=== PATIENT | female | born 1970 | race Caucasian/White ===

== ENCOUNTER 2017-03-03 13:57 | Emergency (ER) | payer OTHER ==
[~2017-03-03] VITALS: Ht 157.5 cm; Wt 82.0 kg
[~2017-03-03 13:57] MED LIST: FAMO40TA38
[2017-03-03 14:00] VITALS: Ht 157.5 cm; Wt 82.0 kg
[2017-03-03] MEDS ORDERED: SOD CHLORIDE 0.9% 1,000 ML IV STA (14:49)
--- NOTE | 2017-03-03 15:29 | RADRPT ---
PROCEDURE: Chest Radiograph. CLINICAL INDICATION: Syncope TECHNIQUE: Single frontal chest radiograph. COMPARISON: None available FINDINGS: The cardiomediastinal silhouette is within normal limits. No infiltrate or effusion is seen. Th e bones are intact. IMPRESSION: 1. Unremarkable chest radiograph. RPTAT: KK .Erich Noe MD, MD Date Time Electronically viewed and signed by .Erich Noe MD, on 03/03/2017 15:29 .B/
[2017-03-03 15:38] LABS: ADD SCAN DIFF NO
[2017-03-03 15:42] LABS: BASOPHILS % 0.2 % (0.0-2.0); EOSINOPHILS # 0.1 10^3/ul (0.0-0.5); EOSINOPHILS % 1.2 % (0.0-7.0); HEMATOCRIT 46.3 % (37.0-47.0); HEMOGLOBIN 15.3 g/dl (12.0-16.0); LYMPHOCYTES # 1.4 10^3/ul (0.8-2.9); LYMPHOCYTES % 33.5 % (15.0-51.0); MEAN CORPUSCULAR HEMOGLOBIN 29.8 pg (29.0-33.0); MEAN CORPUSCULAR VOLUME 90.1 fl (82.0-101.0); MEAN PLATELET VOLUME 10.7 fl (7.4-10.4); MONOCYTE # 0.5 10^3/ul (0.3-0.9); MONOCYTES % 13.1 % (0.0-11.0); NEUTROPHIL # 2.1 10^3/ul (1.6-7.5); NEUTROPHILS % 51.8 % (39.0-77.0); PLATELET COUNT 274 10^3/UL (140-415); RED BLOOD COUNT 5.14 10^6/ul (4.20-5.40); RED CELL DISTRIBUTION WIDTH 13.2 % (11.5-14.5); WHITE BLOOD COUNT 4.1 10^3/ul (4.8-10.8)
--- NOTE | 2017-03-03 15:52 | ERA ---
ER Documentation Chief Complaint Date/Time DATE: 03/03/17 TIME: 15:49 Chief Complaint abd pain with vomiting/diarrhea x 4 days , syncopal episode yesterday HPI 47-year-old female, [place]-speaking and an educational interpreter was used. The patient presents with multiple complaints and multiple different systems. She describes approximately 4 days of nausea vomiting and diarrhea. The vomiting is nonbloody nonbilious and the diarrhea is loose. He has mild cramping abdominal discomfort that is 2 out of 10. She also notes a mild headache that is dull, gradual onset and frontal. She notes paresthesias to the entire body but mostly to the left side of her body. Additionally she describes approximately 2-3 episodes of syncope versus near syncope. She states that when she was standing up she felt lightheaded and may have passed out today. However 2 days ago she was sitting on the couch and thinks that she slumped over. This was witnessed by her daughter without seizure activity and no postictal state. She denied any prodrome of chest pain or shortness of breath. No lumbar back pain or neck pain. ROS All systems reviewed and are negative except as per history of present illness. Medications Home Meds Active Scripts Ondansetron (Ondansetron Odt) 4 Mg Tab.rapdis, 4 MG PO Q6H Y for NAUSEA AND/OR VOMITING, #30 TAB Prov:COOKIE LAWSON MD 03/03/17 Discontinued Reported Medications Famotidine* (Pepcid*) 40 Mg Tablet 12/26/10 Allergies Allergies: Coded Allergies: No Known Drug Allergies (Verified Allergy, Mild, 03/03/17) PMhx/Soc History of Surgery: Yes (GALLSTONE,) Anesthesia Reaction: No Hx Neurological Disorder: No Hx Respiratory Disorders: No Hx Cardiac Disorders: No Hx Psychiatric Problems: No Hx Miscellaneous Medical Probl: No Hx Alcohol Use: No Hx Substance Use: No Hx Tobacco Use: No Smoking Status: Never smoker FmHx Family History: No coronary disease, No diabetes Physical Exam Vitals Vital Signs Date Time Temp Pulse Resp B/P Pulse Ox O2 Delivery O2 Flow Rate FiO2 03/03/17 16:00 98.0 78 18 115/76 100 Room Air 03/03/17 14:00 98.2 96 18 128/89 99 Physical Exam General: Well developed, well nourished, no acute distress Head: Normocephalic, atraumatic. Eyes: Pupils equally reactive, EOM intact ENT: Moist mucous membranes Neck: Supple, no lymphadenopathy Respiratory: Lungs clear bilaterally, no distress Cardiovascular: RRR, no murmurs, rubs, or gallops Abdominal: Soft, non-tender, non-distended, no peritoneal signs : Deferred MSK: No edema, no unilateral swelling, 5/5 strength Neurologic: Alert and oriented, moving all extremities, normal speech, no focal weakness, no cerebellar signs, steady gait Skin: No rash Psych: Normal mood Result Diagram: 03/03/17 1500 03/03/17 1500 Results 24 hrs Laboratory Tests Test 03/03/17 15:00 03/03/17 15:16 White Blood Count 4.110^3/ul Red Blood Count 5.1410^6/ul Hemoglobin 15.3g/dl Hematocrit 46.3% Mean Corpuscular Volume 90.1fl Mean Corpuscular Hemoglobin 29.8pg Mean Corpuscular Hemoglobin Concent 33.0g/dl Red Cell Distribution Width 13.2% Platelet Count 85641^3/UL Mean Platelet Volume 10.7fl Neutrophils % 51.8% Lymphocytes % 33.5% Monocytes % 13.1% Eosinophils % 1.2% Basophils % 0.2% Nucleated Red Blood Cells % 0.0/100WBC Neutrophils # 2.110^3/ul Lymphocytes # 1.410^3/ul Monocytes # 0.510^3/ul Eosinophils # 0.110^3/ul Basophils # 0.010^3/ul Nucleated Red Blood Cells # 0.010^3/ul Prothrombin Time 12.9Sec Prothrombin Time Ratio 1.0 INR International Normalized Ratio 0.97 Activated Partial Thromboplast Time 26.1Sec Sodium Level 139mmol/L Potassium Level 3.4mmol/L Chloride Level 102mmol/L Carbon Dioxide Level 24mmol/L Anion Gap 16 Blood Urea Nitrogen 18mg/dl Creatinine 0.68mg/dl Glucose Level 105mg/dl Calcium Level 9.9mg/dl Troponin I < 0.012ng/ml Bedside Glucose 108mg/dL Current Medications Medications (Trade) Dose Ordered Sig/Abner Route PRN Reason Start Time Stop Time Status Last Admin Dose Admin Sodium Chloride (NS) 1,000 ml @ 1,000 mls/hr Q1H STAT IV 03/03/17 14:49 03/03/17 15:48 DC 03/03/17 15:32 Procedures/MDM EKG, MONITORS, & DIAGNOSTIC IMAGING: EKG: I reviewed and interpreted a 12-lead EKG. Rhythm: Normal sinus rhythm Ectopy: None Intervals: No abnormalities ST segments: No elevations or depressions T waves: No contiguous inversions Chest x-ray: I reviewed and interpreted a 1 view of the chest Mediastinum: No enlargement Cardiac silhouette: No cardiomegaly Airspace: Clear lung perez bilaterally without evidence of pneumothorax Bones: No evidence of fracture CT brain: IMPRESSION: 1. Normal noncontrast CT scan of the brain. 2. If there is clinical concern regarding a posterior fossa lesion, correlation with MRI of the brain is advised. RPTAT: QQ LAB INTERPRETATION: No significant leukocytosis, negative troponin MEDICAL DECISION MAKING: The patient presents the emergency room with nausea vomiting and diarrhea for 4 days. Over this timeframe the patient also has a multitude of other complaints including paresthesias, generalized malaise, headache and 2-3 episodes of syncope versus near syncope. Today she clearly describes a near syncopal episode upon standing. I believe this is most consistent with likely vasovagal versus orthostatic syncope. She does not have any prodrome of chest pain or shortness of breath and is not exhibiting any exertional symptoms or exertional syncope. She has a mild headache but has no warning signs or physical exam findings that would be concerning for subarachnoid hemorrhage. The patient's headache is unlikely related to serious etiology. The patient does not exhibit any clinical signs or symptoms, and has no risk factors to suggest headache etiology such as subarachnoid hemorrhage, acute vertebral or carotid dissection , intracranial mass, epidural, subdural hematoma, dural venous sinus thrombosis , giant cell arteritis, or pseudotumor cerebri. I do not believe the patient is having serious etiology to her episodes of syncope versus near syncope. This is unlikely given to be secondary to cardiac arrhythmia, no evidence of dissection or pulmonary embolism. Again, likely secondary to mild dehydration in the setting of acute diarrheal illness given temporal relation. The patient will benefit from fluid hydration, laboratory testing, CT imaging of the brain. I discussed inpatient versus outpatient management and if her laboratory testing and diagnostic imaging is unrevealing, outpatient management may be appropriate. ER COURSE: The patient continues to be well-appearing and symptoms are improving. She is ambulatory. Again, very low clinical concern for cardiac process or stroke. The patient's syncopal episode seemed to be more consistent with dehydration and orthostasis. The patient's orthostasis has clinically improved as the patient is amatory without difficulty. Outpatient management appropriate. If syncope occurs again the patient should return to the emergency room. I kept the patient and/or family informed of laboratory and diagnostic imaging results throughout the emergency room course. DISPOSITION PLAN: We discussed follow up with the patient's primary care doctor within 24 to 48 hours as needed. We also discussed return to the emergency room for worsening symptoms or worsening condition. Outpatient referral: [None required] Discharge Medications: Zofran Departure Diagnosis: Primary Impression: Nausea vomiting and diarrhea Additional Impressions: Near syncope Mild dehydration Condition: Stable COOKIE LAWSON MD Mar 03, 2017 15:52
--- NOTE | 2017-03-03 15:54 | RADRPT ---
PROCEDURE: CT Brain without contrast. CLINICAL INDICATION: Syncope. TECHNIQUE: A CT of the brain without contrast was performed utilizing axial sections from the skul l base through the vertex. The patient was scanned without intravenous contrast enhancement. Sagitta l and coronal reformatted images were obtained using the data from the axial images. Total exam DLP is 630.20 mGy-cm. CTDIvol is 45.01 mGy. One or more of the following dose reduction techniques we re used: Automated exposure control, adjustment of the mA and/or kV according to patient size, use o f iterative reconstruction technique. COMPARISON: None available FINDINGS: There is normal evans-white matter differentiation. The ventricles and cisterns are normal. There is no intracranial hemorrhage or space-occupying lesion. There is no skull fracture or lytic lesion. IMPRESSION: 1. Normal noncontrast CT scan of the brain. 2. If there is clinical concern regarding a posterior fossa lesion, correlation with MRI of the bra in is advised. RPTAT: QQ .Chapito Baron MD, MD Date Time Electronically viewed and signed by .Chapito Baron MD, on 03/03/2017 15:54 .R/
[2017-03-03 15:59] LABS: INR 0.97; PARTIAL THROMBOPLASTIN TIME 26.1 Sec (25.0-35.0); PROTIME 12.9 Sec (12.2-14.2)
[2017-03-03 16:00] LABS: ANION GAP 16 (8-16); BLOOD UREA NITROGEN 18 mg/dl (7-20); CALCIUM 9.9 mg/dl (8.4-10.2); CARBON DIOXIDE 24 mmol/L (21-31); CHLORIDE 102 mmol/L (97-110); CREATININE 0.68 mg/dl (0.44-1.00); GLUCOSE 105 mg/dl (70-220); POTASSIUM 3.4 mmol/L (3.5-5.1); SODIUM 139 mmol/L (135-144)
[2017-03-03 16:14] LABS: TROPONIN-I < 0.012 ng/ml (0.00-0.12)
[2017-03-03] MEDS ORDERED: ONDA4TAB14 PO (17:02)
[2017-03-03 17:29] VITALS: BP 122/70; PULSE 74; RESP 20; TEMP 98.2
== END 2017-03-03 17:31 | disposition home or self-care (01) ==
LOC: E/R 13:57
DX: R11.2 Nausea with vomiting, unspecified (principal); R19.7 Diarrhea, unspecified; R55 Syncope and collapse; E86.0 Dehydration
CPT/HCPCS: 36415; 70450; 71010; 80048; 82962; 84484; 85025; 85610; 85730; 93005; J7030; Z7502

== ENCOUNTER 2017-03-08 11:59 | Emergency (ER) | payer OTHER ==
[~2017-03-08] VITALS: Wt 86.5 kg
[~2017-03-08 11:59] MED LIST changes: -FAMO40TA38; +ONDA4TAB14 PO
[2017-03-08] MEDS ORDERED: KETOROLAC 30 MG INJ IV STA (12:50)
[2017-03-08] MEDS ORDERED: SOD CHLORIDE 0.9% 1,000 ML IV STA (12:50)
[2017-03-08] MEDS ORDERED: ONDANSETRON 4 MG INJ IV STA (12:50)
[2017-03-08] MEDS ORDERED: KETOROLAC 60 MG INJ IM STA (12:54)
[2017-03-08] MEDS ORDERED: ONDANSETRON (ODT) 4 MG TAB ODT STA (12:54)
[2017-03-08] MEDS ORDERED: HYDROCODONE/APAP (5/325) TAB PO ONE (13:00)
[2017-03-08 13:23] LABS: URINE BLOOD (Dip) POC Trace-lysed (NEGATIVE)
[2017-03-08] MEDS ORDERED: FIORICET PO (13:27)
[2017-03-08] MEDS ORDERED: CEPHALEXIN 500 MG CAP PO ONE (13:30)
[2017-03-08] MEDS ORDERED: CEPH-443 PO (13:32)
--- NOTE | 2017-03-08 13:40 | ERD ---
ER Documentation Chief Complaint Date/Time DATE: 03/08/17 TIME: 13:38 Chief Complaint INTERMITTENT HEADACHE X1 WEEK HPI This 47-year-old female presents for a bitemporal headache over the last few days. History is significant for being seen here earlier this week for vomiting diarrhea. Vomiting diarrhea has resolved. She had a normal CT brain on her previous visit. She denies any current fevers, bowel pain. She some slight dizziness but no visual changes, vomiting, deficits, bowel or bladder incontinence. ROS All systems reviewed and are negative except as per history of present illness. Medications Home Meds Active Scripts Cephalexin* (Keflex*) 500 Mg Capsule, 500 MG PO QID for 5 Days, CAP Prov:CANDELARIO AGUERO MD 03/08/17 Acetamin/Butalbital/Caffeine* (Fioricet*) [id number] Tab, 1 TAB PO Q6H Y for PAIN, #15 TAB Prov:CANDELARIO AGUERO MD 03/08/17 Ondansetron (Ondansetron Odt) 4 Mg Tab.rapdis, 4 MG PO Q6H Y for NAUSEA AND/OR VOMITING, #30 TAB Prov:COOKIE LAWSON MD 03/03/17 Discontinued Reported Medications Famotidine* (Pepcid*) 40 Mg Tablet 12/26/10 Allergies Allergies: Coded Allergies: No Known Drug Allergies (Verified Allergy, Mild, 03/03/17) PMhx/Soc History of Surgery: Yes (GALLSTONE,) Anesthesia Reaction: No Hx Neurological Disorder: No Hx Respiratory Disorders: No Hx Cardiac Disorders: No Hx Psychiatric Problems: No Hx Miscellaneous Medical Probl: No Hx Alcohol Use: No Hx Substance Use: No Hx Tobacco Use: No Smoking Status: Never smoker Physical Exam Vitals Vital Signs Date Time Temp Pulse Resp B/P Pulse Ox O2 Delivery O2 Flow Rate FiO2 03/08/17 12:06 98.6 70 20 135/84 99 Physical Exam Const: [] Alert, [id number], morbidly obese. Head: Atraumatic Eyes: Normal Conjunctiva. Eyes are PERRL and extraocular movements intact. ENT: Normal External Ears, Nose and Mouth. Neck: Full range of motion..~ No meningismus. Resp: Clear to auscultation bilaterally Cardio: Regular rate and rhythm, no murmurs Abd: Soft, non tender, non distended. Normal bowel sounds Skin: No petechiae or rashes Back: No midline or flank tenderness Ext: No cyanosis, or edema Neur: Awake and alert. Normal gait. No appreciable focal neurologic deficits. Cranial nerves II to progress intact. Psych: Normal Mood and Affect Results 24 hrs Laboratory Tests Test 03/08/17 13:28 Bedside Urine pH (LAB) 7.0 Bedside Urine Protein (LAB) Trace Bedside Urine Glucose (UA) Negative Bedside Urine Ketones (LAB) Negative Bedside Urine Blood Trace-lysed Bedside Urine Nitrite (LAB) Positive Bedside Urine Leukocyte Esterase (L 1+ Current Medications Medications (Trade) Dose Ordered Sig/Abner Route PRN Reason Start Time Stop Time Status Last Admin Dose Admin Sodium Chloride (NS) 1,000 ml @ 1,000 mls/hr Q1H STAT IV 03/08/17 12:50 03/08/17 12:54 DC Ondansetron HCl (Zofran Inj) 4 mg ONCE STAT IV 03/08/17 12:50 03/08/17 12:54 DC Ketorolac Tromethamine (Toradol) 30 mg ONCE STAT IV 03/08/17 12:50 03/08/17 12:54 DC Acetaminophen/ Hydrocodone Bitart ([place] (5/325)) 1 tab ONCE ONCE PO 03/08/17 13:00 03/08/17 13:01 DC 03/08/17 13:16 Ketorolac Tromethamine (Toradol) 60 mg ONCE STAT IM 03/08/17 12:54 03/08/17 12:55 DC 03/08/17 13:16 Ondansetron HCl (Zofran Odt) 8 mg ONCE STAT ODT 03/08/17 12:54 03/08/17 12:56 DC 03/08/17 13:17 Cephalexin (Keflex) 500 mg ONCE ONCE PO 03/08/17 13:30 03/08/17 13:33 DC Procedures/MDM Patient presents with signs symptoms are likely tension headache. Urine shows positive nitrites and leukocytes patient was given Keflex 500 mg by mouth, and [place] 5 mg and mouth and Toradol 60 mg IM. Patient has signs is UTI but patient didn't tension headache may be constitutional symptoms due to what appear to be resolving gastrointestinal virus. Signs and symptoms do not suggest meningitis, neurologic deficit, acute abdomen, sepsis or additional cause of present complaints. She'll be treated with a short course of Fioricet and Keflex at home and primary care follow-up. Departure Diagnosis: Primary Impression: UTI (urinary tract infection) Urinary tract infection type: acute cystitis Hematuria presence: without hematuria Qualified Code: N30.00 - Acute cystitis without hematuria Additional Impression: Headache Headache type: unspecified Headache chronicity pattern: unspecified pattern Intractability: not intractable Qualified Code: R51 - Nonintractable headache, unspecified chronicity pattern, unspecified headache type Condition: Stable Patient Instructions: Understanding Urinary Tract Infections (UTIs), Tension Headaches, Headache, Unspecified Additional Instructions: TIENE INFECCION EN ORINA Y VAMOS A TRATAR. Cheque otro vez con huiazr doctor primario en el proximo blair or regresa para mas o nueva simptomas. PURVI MUCH AGUA EN CASA. CANDELARIO AGUERO MD Mar 08, 2017 13:40
== END 2017-03-08 13:59 | disposition home or self-care (01) ==
LOC: FTE 11:59
DX: N30.00 Acute cystitis without hematuria (principal); R11.10 Vomiting, unspecified
CPT/HCPCS: 81003; 96372; J1885; Z7502; Z7610; J7030

== ENCOUNTER 2017-06-18 13:20 | Emergency (ER) | payer OTHER ==
[~2017-06-18] VITALS: Wt 90.9 kg
[~2017-06-18 13:20] MED LIST changes: +CEPH-443 PO; +FIORICET PO
[2017-06-18] MEDS ORDERED: SOD CHLORIDE 0.9% 1,000 ML IV STA (18:06)
[2017-06-18] MEDS ORDERED: ONDANSETRON 4 MG INJ IV STA (18:06)
[2017-06-18] MEDS ORDERED: morphine 4 MG/ML VIAL IV STA (18:29)
[2017-06-18 18:54] LABS: ADD UMIC NO; UR ASCORBIC ACID NEGATIVE (NEGATIVE); UR BILIRUBIN (Dip) NEGATIVE (NEGATIVE); UR BLOOD (Dip) NEGATIVE (NEGATIVE); UR CLARITY CLEAR (CLEAR); UR COLOR YELLOW (YELLOW); UR GLUCOSE (Dip) 1+ mg/dL (NEGATIVE); UR KETONES (Dip) NEGATIVE (NEGATIVE); UR LEUKOCYTE ESTERASE (Dip) NEGATIVE Leu/ul (NEGATIVE); UR NITRITE (Dip) NEGATIVE (NEGATIVE); UR SPECIFIC GRAVITY (Dip) 1.024 (1.003-1.030); UR TOTAL PROTEIN (Dip) NEGATIVE (NEGATIVE); UR UROBILINOGEN (Dip) NEGATIVE (NEGATIVE)
[2017-06-18 18:55] LABS: BASOPHILS % 0.5 % (0.0-2.0); EOSINOPHILS # 0.2 10^3/ul (0.0-0.5); EOSINOPHILS % 2.5 % (0.0-7.0); HEMATOCRIT 38.1 % (37.0-47.0); HEMOGLOBIN 12.9 g/dl (12.0-16.0); LYMPHOCYTES # 2.7 10^3/ul (0.8-2.9); MEAN CORPUSCULAR HEMOGLOBIN 31.3 pg (29.0-33.0); MEAN CORPUSCULAR HGB CONC 33.9 g/dl (32.0-37.0); MEAN CORPUSCULAR VOLUME 92.5 fl (82.0-101.0); MONOCYTE # 0.7 10^3/ul (0.3-0.9); MONOCYTES % 8.4 % (0.0-11.0); NEUTROPHIL # 4.3 10^3/ul (1.6-7.5); NEUTROPHILS % 54.1 % (39.0-77.0); PLATELET COUNT 257 10^3/UL (140-415); RED BLOOD COUNT 4.12 10^6/ul (4.20-5.40); RED CELL DISTRIBUTION WIDTH 13.1 % (11.5-14.5); WHITE BLOOD COUNT 7.9 10^3/ul (4.8-10.8)
[2017-06-18 19:19] LABS: ALBUMIN 4.1 g/dl (3.3-4.9); ALBUMIN/GLOBULIN RATIO 1.17; BILIRUBIN,INDIRECT 0.1 mg/dl (0-1.1); BILIRUBIN,TOTAL 0.1 mg/dl (0.2-1.3); CALCIUM 9.6 mg/dl (8.4-10.2); CREATININE 0.58 mg/dl (0.44-1.00); POTASSIUM 3.7 mmol/L (3.5-5.1); TOTAL PROTEIN 7.6 g/dl (6.1-8.1)
[2017-06-18] MEDS ORDERED: IOHEXOL 300MG/ML 150 ML BTL ONE (19:55)
[2017-06-18] MEDS ORDERED: SOD CHLORIDE 0.9% 100 ML ONE (19:55)
--- NOTE | 2017-06-18 20:32 | RADRPT ---
PROCEDURE: CT Abdomen and Pelvis with contrast. CLINICAL INDICATION: Abdominal pain TECHNIQUE: CT of the abdomen and pelvis was performed on a multi-detector scanner following the un complicated IV administration of 90 cc of Omnipaque 300. Coronal and sagittal images were reformatt ed from the axial data set. One or more of the following dose reduction techniques were used: autom ated exposure control, adjustment of the mA and/or kV according to patient size, use of iterative re construction technique. CTDI = 22.04 mGy. DLP = 1183.13 mGy-cm. COMPARISON: None. FINDINGS: The lung bases are clear. The heart size is normal, without pericardial effusion. Severe hepatic s teatosis is noted, without evidence of focal mass. Gallbladder is surgically absent. Biliary tree, p ancreas, spleen, adrenal glands and kidneys are unremarkable. No urolithiasis or obstructive uropath y is identified. The stomach is grossly unremarkable. There is no abdominal aortic aneurysm or dissection. There is no retroperitoneal lymphadenopathy. The virgen hepatis region is clear. No bowel obstruction, free intraperitoneal air or abscess is identified. There is no diverticulosis, diverticulitis or colitis. The appendix is well visualized and normal. Urinary bladder, uterus and right adnexa are grossly unremarkable. Left ovary demonstrates a 3 cm cyst. No solid pelvic mass, fr ee fluid or lymphadenopathy is identified. The surrounding osseous structures are unremarkable. No osteolytic or osteoblastic lesion is detect ed. IMPRESSION: 1. There is severe hepatic steatosis. 2. Left ovary demonstrates a 3 cm cyst. 3. No solid mass, lymphadenopathy, or acute inflammatory process is identified. RPTAT: HDWR .Jhony Rueda MD, MD Date Time Electronically viewed and signed by .Jhony Rueda MD, MD on 06/18/2017 20:32 .R/
[2017-06-18] MEDS ORDERED: FAMOTIDINE 20 MG INJ IV ONE (21:00)
[2017-06-18] MEDS ORDERED: LIDOCAINE/MYLANTA 40 ML BTL PO ONE (21:00)
[2017-06-18] MEDS ORDERED: RANI150T9 PO (21:58)
[2017-06-18 22:20] VITALS: BP 123/69; PULSE 62; RESP 17; TEMP 97.9
--- NOTE | 2017-06-18 23:27 | ERD ---
ER Documentation Chief Complaint Date/Time DATE: 06/18/17 TIME: 23:23 Chief Complaint abd pain w nausea HPI 39-year-old female patient with a past medical history of status post cholecystectomy presents to the ED complaining of epigastric pain that she describes as pressure-like since 3 days ago. Patient reports that she is nauseous but denies any vomiting or diarrhea. Reports that her pain is worse with food. She had a near syncopal episode 3 days ago. Denies any post-ictal symptoms or seizures. Denies any neck stiffness, headache, chest pain, shortness of breath, diarrhea, constipation, dysuria, urgency, frequency, flank pain. ROS All systems reviewed and are negative except as per history of present illness. Medications Home Meds Active Scripts Ranitidine Hcl* (Zantac*) 150 Mg Tablet, 150 MG PO BID Y for EPIGASTRIC PAIN, # 30 TAB Prov:MARYANN HOLLINS PA-C 06/18/17 Cephalexin* (Keflex*) 500 Mg Capsule, 500 MG PO QID for 5 Days, CAP Prov:CANDELARIO NICOLE MD 03/08/17 Acetamin/Butalbital/Caffeine* (Fioricet*) [id number] Tab, 1 TAB PO Q6H Y for PAIN, #15 TAB Prov:CANDELARIO NICOLE MD 03/08/17 Ondansetron (Ondansetron Odt) 4 Mg Tab.rapdis, 4 MG PO Q6H Y for NAUSEA AND/OR VOMITING, #30 TAB Prov:COOKIE LAWSON MD 03/03/17 Allergies Allergies: Coded Allergies: No Known Drug Allergies (Verified Allergy, Mild, 03/03/17) PMhx/Soc History of Surgery: Yes (GALLSTONE,) Anesthesia Reaction: No Hx Neurological Disorder: No Hx Respiratory Disorders: No Hx Cardiac Disorders: No Hx Psychiatric Problems: No Hx Miscellaneous Medical Probl: No Hx Alcohol Use: No Hx Substance Use: No Hx Tobacco Use: No Smoking Status: Never smoker Physical Exam Vitals Vital Signs Date Time Temp Pulse Resp B/P Pulse Ox O2 Delivery O2 Flow Rate FiO2 06/18/17 22:20 97.9 62 17 123/69 98 Room Air 06/18/17 19:08 146/65 06/18/17 19:07 135/64 06/18/17 13:28 97.9 74 20 123/67 99 Physical Exam Const: [id number], well-nourished. In no acute distress. Head: Atraumatic, normocephalic Eyes: Normal Conjunctiva without injection. No purulent discharge. ENT: Normal external ear, nose. Moist oropharynx without tonsillar exudates. Non -erythematous pharynx. Uvula midline. No drooling. No trismus. Neck: No cervical midline tenderness. Full range of motion. No meningismus. No cervical lymphadenopathy. No JVD. Resp: Clear to auscultation bilaterally. No wheezing, rhonchi, rales, or crackles. No accessory muscle use. No retractions. Cardio: Regular rate and rhythm. No murmurs, rubs or gallops. Abd: Soft, epigastric tenderness, non distended. Normal bowel sounds. No palpable masses. No rebound tenderness. No guarding. Negative McBurney's point. Negative psoas sign. Negative obturator sign. : See exam in MDM. Skin: No petechiae or rashes Back: No midline tenderness. No CVA tenderness. Ext: No cyanosis, or edema. Neur: Awake and alert. Normal gait. Normal coordination. Psych: Normal Mood and Affect Results 24 hrs Laboratory Tests Test 06/18/17 18:25 06/18/17 18:32 Urine Color YELLOW Urine Clarity CLEAR Urine pH 5.0 Urine Specific [place] 1.024 Urine Ketones NEGATIVEmg/dL Urine Nitrite NEGATIVEmg/dL Urine Bilirubin NEGATIVEmg/dL Urine Urobilinogen NEGATIVEmg/dL Urine Leukocyte Esterase NEGATIVELeu/ul Urine Hemoglobin NEGATIVEmg/dL Urine Glucose 1+mg/dL Urine Total Protein NEGATIVEmg/dl White Blood Count 7.910^3/ul Red Blood Count 4.1210^6/ul Hemoglobin 12.9g/dl Hematocrit 38.1% Mean Corpuscular Volume 92.5fl Mean Corpuscular Hemoglobin 31.3pg Mean Corpuscular Hemoglobin Concent 33.9g/dl Red Cell Distribution Width 13.1% Platelet Count 05392^3/UL Mean Platelet Volume 11.0fl Neutrophils % 54.1% Lymphocytes % 34.0% Monocytes % 8.4% Eosinophils % 2.5% Basophils % 0.5% Nucleated Red Blood Cells % 0.0/100WBC Neutrophils # 4.310^3/ul Lymphocytes # 2.710^3/ul Monocytes # 0.710^3/ul Eosinophils # 0.210^3/ul Basophils # 0.010^3/ul Nucleated Red Blood Cells # 0.010^3/ul Sodium Level 138mmol/L Potassium Level 3.7mmol/L Chloride Level 106mmol/L Carbon Dioxide Level 24mmol/L Anion Gap 12 Blood Urea Nitrogen 14mg/dl Creatinine 0.58mg/dl Glucose Level 94mg/dl Calcium Level 9.6mg/dl Total Bilirubin 0.1mg/dl Direct Bilirubin 0.00mg/dl Indirect Bilirubin 0.1mg/dl Aspartate Amino Transf (AST/SGOT) 49IU/L Alanine Aminotransferase (ALT/SGPT) 44IU/L Alkaline Phosphatase 108IU/L Total Protein 7.6g/dl Albumin 4.1g/dl Globulin 3.50g/dl Albumin/Globulin Ratio 1.17 Lipase 127U/L Serum HCG, Qualitative NEGATIVE Current Medications Medications (Trade) Dose Ordered Sig/Abner Route PRN Reason Start Time Stop Time Status Last Admin Dose Admin Sodium Chloride (NS) 1,000 ml @ 1,000 mls/hr Q1H STAT IV 06/18/17 18:06 06/18/17 19:05 DC 06/18/17 18:22 Ondansetron HCl (Zofran Inj) 4 mg ONCE STAT IV 06/18/17 18:06 06/18/17 18:09 DC 06/18/17 18:22 Morphine Sulfate (morphine) 4 mg ONCE STAT IV 06/18/17 18:29 06/18/17 18:30 DC 06/18/17 19:00 IV Flush 10 ml 10 ml STK-MED ONCE .ROUTE 06/18/17 19:55 06/18/17 19:56 DC 06/18/17 20:15 Sodium Chloride (NS) 100 ml @ ud STK-MED ONCE .ROUTE 06/18/17 19:55 06/18/17 19:56 DC 06/18/17 20:16 Iohexol (Omnipaque 300mg/ ml) 150 ml STK-MED ONCE .ROUTE 06/18/17 19:55 06/18/17 19:56 DC 06/18/17 20:15 Miscellaneous Medication (Gi Cocktail (2)) 40 ml ONCE ONCE PO 06/18/17 21:00 06/18/17 21:01 DC 06/18/17 21:28 Famotidine (Pepcid Iv) 20 mg ONCE ONCE IV 06/18/17 21:00 06/18/17 21:01 DC 06/18/17 21:28 Procedures/MDM 47-year-old female patient with no significant past medical history resents to the ED complaining of abdominal pain with nausea that started 3 days ago. Patient is afebrile and nontoxic-appearing. Patient has normal vital signs. Patient was further worked up with CBC, CMP, lipase, UA, CT of the abdomen and pelvis without contrast. Patient's pain and symptoms have improved after treatment with 4 mg IV morphine, Zofran 4 mg IV, 1 L normal saline, GI cocktail , Famotidine 20 mg IV. CBC: No leukocytosis. No e/o of systemic infection. No e/o anemia. CMP: No e/o severe acidosis, alkalosis, renal failure, diabetic ketoacidosis, liver disease Lipase within normal limits. Urine: No leukocyte esterase, no nitrites, no hematuria. Urine : Negative Beta Hcg negative PROCEDURE: CT Abdomen and Pelvis with contrast. CLINICAL INDICATION: Abdominal pain TECHNIQUE: CT of the abdomen and pelvis was performed on a multi-detector scanner following the uncomplicated IV administration of 90 cc of Omnipaque 300. Coronal and sagittal images were reformatted from the axial data set. One or more of the following dose reduction techniques were used: automated exposure control, adjustment of the mA and/or kV according to patient size, use of iterative reconstruction technique. CTDI = 22.04 mGy. DLP = 1183.13 mGy-cm. COMPARISON: None. FINDINGS: The lung bases are clear. The heart size is normal, without pericardial effusion. Severe hepatic steatosis is noted, without evidence of focal mass. Gallbladder is surgically absent. Biliary tree, pancreas, spleen, adrenal glands and kidneys are unremarkable. No urolithiasis or obstructive uropathy is identified. The stomach is grossly unremarkable. There is no abdominal aortic aneurysm or dissection. There is no retroperitoneal lymphadenopathy. The virgen hepatis region is clear. No bowel obstruction, free intraperitoneal air or abscess is identified. There is no diverticulosis, diverticulitis or colitis. The appendix is well visualized and normal. Urinary bladder, uterus and right adnexa are grossly unremarkable. Left ovary demonstrates a 3 cm cyst. No solid pelvic mass, free fluid or lymphadenopathy is identified. The surrounding osseous structures are unremarkable. No osteolytic or osteoblastic lesion is detected. IMPRESSION: 1. There is severe hepatic steatosis. 2. Left ovary demonstrates a 3 cm cyst. 3. No solid mass, lymphadenopathy, or acute inflammatory process is identified. EKG reviewed and interpreted by Dr. Nicole Rate/Rhythm: [84 bpm, Normal Sinus Rhythm] No ectopy, no ST elevations, normal axis. QRS, ST, T-waves: [No changes consistent w/ acute ischemia] Impression: [No evidence of ischemia or arrhythmia] Patient has an ovarian cyst and hepatic steatosis. Low suspicion for acute myocardial infarction, pneumothorax, pneumonia, cardiac tamponade, pulmonary embolism, AAA, aortic dissection, thoracic aortic dissection, endocarditis, pericarditis, cocaine-related ischemia, Boerhaave's syndrome, cardiac dysrhythmias,meningitis, intracranial bleed, seizure, stroke, TIA or other emergent conditions. Low suspicion for ectopic , ovarian torsion, cholecystitis, choledocholithiasis, cholangitis, pancreatitis, appendicitis, bowel obstruction, ileus, volvulus, nephrolithiasis, pyelonephritis, hepatitis, perforated viscus, diverticulitis, strangulated/incarcerated hernia, DKA, acute abdomen, mesenteric ischemia or other emergent conditions. This was discussed with my supervising physician, Dr. Nicole who agreed with the management and discharge plan. This was discussed with my supervising physician Dr. Nicole who agreed with the management and discharge plan. Discharge medications: Ranitidine Follow up with primary care physician in 1-2 days for referral to police booking officer. Instructed patient to return to the ED sooner for any worsening symptoms. Patient's questions were answered. Patient understood and agreed with discharge plan. Patient discharged stable. Departure Diagnosis: Primary Impression: Multiple complaints Condition: Stable Patient Instructions: How the Liver Works, Abdominal Pain, What Are Ovarian Cysts?, Near Syncope, Unknown, Gastritis Vs. Ulcer Referrals: COMMUNITY CLINICS YOU HAVE RECEIVED A MEDICAL SCREENING EXAM AND THE RESULTS INDICATE THAT YOU DO NOT HAVE A CONDITION THAT REQUIRES URGENT TREATMENT IN THE EMERGENCY DEPARTMENT. FURTHER EVALUATION AND TREATMENT OF YOUR CONDITION CAN WAIT UNTIL YOU ARE SEEN IN YOUR DOCTORS OFFICE WITHIN THE NEXT 1-2 DAYS. IT IS YOUR RESPONSIBILITY TO MAKE AN APPOINTMENT FOR FOLOW-UP CARE. IF YOU HAVE A PRIMARY DOCTOR --you should call your primary doctor and schedule an appointment IF YOU DO NOT HAVE A PRIMARY DOCTOR YOU CAN CALL OUR PHYSICIAN REFERRAL HOTLINE AT IF YOU CAN NOT AFFORD TO SEE A PHYSICIAN YOU CAN CHOSE FROM THE FOLLOWING [facility] [address] [facility] [address] [facility]. [facility] [address] [facility] [address] [facility] [address] [facility]. [facility] [address] [facility]. [facility] YOU HAVE RECEIVED A MEDICAL SCREENING EXAM AND THE RESULTS INDICATE THAT YOU DO NOT HAVE A CONDITION THAT REQUIRES URGENT TREATMENT IN THE EMERGENCY DEPARTMENT. FURTHER EVALUATION AND TREATMENT OF YOUR CONDITION CAN WAIT UNTIL YOU ARE SEEN IN YOUR DOCTORS OFFICE WITHIN THE NEXT 1-2 DAYS. IT IS YOUR RESPONSIBILITY TO MAKE AN APPOINTMENT FOR FOLOW-UP CARE. IF YOU HAVE A PRIMARY DOCTOR --you should call your primary doctor and schedule and appointment IF YOU DO NOT HAVE A PRIMARY DOCTOR YOU CAN CALL OUR PHYSICIAN REFERRAL HOTLINE AT . IF YOU CAN NOT AFFORD TO SEE A PHYSICIAN YOU CAN CHOSE FROM THE FOLLOWING [facility]: [facility] [address] [place] [address] [facility] [address] [place] [address] [facility] [address] [place] [address] [facility]SPECIALTIES Additional Instructions: Llame al doctor MAANA y yelena ewelina MANDI PARA DENTRO DE 2-3 COBOS para ewelina remisi n para thai a un gastroenterlogo para huizar dolor abdominal y el neurlogo para katerin episodios cercanos del sncope y SENIOR INFORMATION DEVELOPER para huizar quiste ovrico. Dgale a la secretaria que nosotros le instruimos hacer esta mandi.Avise o llame si huizar condicin se empeora antes de la mandi. Regresa aqui si peor o no mejor. MARYANN HOLLINS PA-C Jun 18, 2017 23:27 MARYANN HOLLINS PA-C Jun 18, 2017 23:27
== END 2017-06-18 22:20 | disposition home or self-care (01) ==
LOC: FTE 13:20
DX: R10.13 Epigastric pain (principal); R11.0 Nausea
CPT/HCPCS: 36415; 74177; 80053; 81003; 83690; 84703; 85025; 93005; 96374; 96375; J2270; J2405; J7030; Q9967; Z7502; Z7610

== ENCOUNTER 2017-11-07 08:45 | Emergency (ER) | END 2017-11-07 11:13 | disposition home or self-care (01) ==

== ENCOUNTER 2018-01-03 21:11 | Emergency (ER) | END 2018-01-04 00:52 | disposition home or self-care (01) ==

== ENCOUNTER 2019-07-05 10:55 | Emergency (ER) | payer SELFPAY ==
[~2019-07-05] VITALS: Ht 160 cm; Wt 87.8 kg
[~2019-07-05 10:55] MED LIST changes: +FAMO-96 PO; +HYDR-4011 PO; +IBUP-1542 PO; +MAG-19 PO; +NITR-58 PO; +ONDA4TAB8 PO; +PHEN-538 PO; +RANI-535 PO
[2019-07-05 11:17] VITALS: Ht 160 cm; Wt 87.8 kg
[2019-07-05] MEDS ORDERED: ONDANSETRON (ODT) 4 MG TAB ODT STA (12:01)
[2019-07-05] MEDS ORDERED: KETOROLAC 30 MG INJ IM STA (12:01)
[2019-07-05] MEDS ORDERED: SOD CHLORIDE 0.9% 1,000 ML IV STA (13:32)
[2019-07-05] MEDS ORDERED: CEFTRIAXONE 1 GM/50 ML (PMX) 50 ML IVPB STA (13:32)
[2019-07-05] MEDS ORDERED: OXYCODONE/ACETAMINOPHEN (5/325) TAB PO ONE (14:00)
[2019-07-05 15:00] VITALS: BP 132/75; PULSE 87; RESP 18
== END 2019-07-05 15:23 | disposition home or self-care (01) ==
LOC: E/R 10:55
DX: R42 Dizziness and giddiness (principal); R40.2142 Coma scale, eyes open, spontaneous, at arrival to emergency department; R40.2362 Coma scale, best motor response, obeys commands, at arrival to emergency department; R40.2252 Coma scale, best verbal response, oriented, at arrival to emergency department; G44.209 Tension-type headache, unspecified, not intractable; N39.0 Urinary tract infection, site not specified; E66.9 Obesity, unspecified; Z68.34 Body mass index [BMI] 34.0-34.9, adult
CPT/HCPCS: 70450; 81001; 82962; 93005; 96372; 96374; 99285; J0696; J1885; J7030